=== PATIENT | male | born 1955 | race Caucasian/White ===

== ENCOUNTER 2019-06-10 20:12 | Inpatient (IN) ==
[2019-06-10] MEDS ORDERED: NS 1,000 ML IV ONE (20:52)
[2019-06-10] MEDS ORDERED: ATIVAN IV ONE (20:52)
[2019-06-10 21:11] LABS: BASO# 0.01 X1000 (0.0-0.2); BASO% 0.2 % (0.0-0.8); EOS# 0.01 X1000 (0.0-0.7); EOS% 0.2 % (0.0-10.0); HEMATOCRIT 31.1 % (42.0-52.0); HEMOGLOBIN 10.9 g/dL (14.0-18.0); IMM GRAN# 0.03 X1000 (0.0-0.04); IMM GRAN% 0.6 % (0.0-0.5); LYMPH# 0.49 X1000 (1.2-3.4); LYMPH% 9.7 % (20.5-51.1); MCH 26.8 PG (27-31); MCV 76.6 FL (81-99); MONO% 9.9 % (1.7-9.3); MPV 9.1 FL (7.4-10.4); NEUT% 79.4 % (42.2-75.2); PLT 133 X1000 (130-400); RBC 4.06 XMIL (4.7-6.1); RDW 18.8 % (11.5-14.5); WBC 5.04 X1000 (4.8-10.8)
[2019-06-10 21:37] LABS: ESTIMATED GFR > 60
[2019-06-10 21:51] LABS: ACETAMINOPHEN < 1.2 ug/mL (10-30); AGAP 15; ALB/GLOB RATIO 1.4; ALBUMIN 3.9 g/dL (3.5-5.0); ALKALINE PHOSPHATASE 97 U/L (32-122); AMYLASE 77 U/L (20-200); BUN 6 mg/dL (8-22); CALCIUM 7.7 mg/dL (8.8-10.2); CHLORIDE 88 mmol/L (98-107); COSMO 252; CREATININE 0.7 mg/dL (0.7-1.2); GLUCOSE 112 mg/dL (70-104); GOT 168 U/L (10-34); GPT 106 U/L (10-44); LIPASE 84 U/L (13-60); POTASSIUM 3.8 mmol/L (3.5-5.1); SALICYLATES < 3.00 mg/dL (3-10); SODIUM 126 mmol/L (136-145); TCO2 23 mmol/L (25-35); TOTAL BILIRUBIN 0.22 mg/dL (0.20-1.00); TOTAL PROTEIN 6.6 g/dL (6.3-8.3)
[2019-06-10 22:25] LABS: URINE SOURCE CLEAN CATCH
[2019-06-10 22:36] LABS: BILIRUBIN URINE NEGATIVE (NEGATIVE); BLOOD URINE NEGATIVE (NEGATIVE); COLOR YELLOW; GLUCOSE URINE NEGATIVE (NEGATIVE); KETONE URINE NEGATIVE (NEGATIVE); LEUKOCYTES URINE NEGATIVE (NEGATIVE); NITRITE URINE NEGATIVE (NEGATIVE); PROTEIN URINE 30 mg/dL (NEGATIVE); SP GRAVITY URINE 1.019; TURBIDITY URINE CLEAR (CLEAR); UR EPITHELIAL CELLS <10 /HPF (<10); URINE BACTERIA NEGATIVE /HPF; URINE RBC <10 /HPF (<10); URINE WBC <10 /HPF (<10); UROBILINOGEN URINE NORMAL (NORMAL)
[2019-06-10 22:48] LABS: UR AMPHETAMINES QUAL NONE DETECTED (NONE DETECT); UR BARBITUATES QUAL NONE DETECTED (NONE DETECT); UR BENZODIAZEPIN QUAL NONE DETECTED (NONE DETECT); UR CANNABINOIDS QUAL PRESUMPTIVE POSITIVE (NONE DETECT); UR COCAINE QUAL NONE DETECTED (NONE DETECT); UR METHADONE QUAL NONE DETECTED (NONE DETECT); UR OPIATES QUAL NONE DETECTED (NONE DETECT); UR OXYCODONE QUAL NONE DETECTED (NONE DETECT); UR PCP QUAL NONE DETECTED (NONE DETECT)
--- NOTE | 2019-06-10 22:59 | PROVIDER DOCUMENTATION ---
This chart was entered by Mara Hilario Scribe, acting as scribe for Felicita Kuo MD. [id number]-[id number]-[facility] Abuse/Overdose - General Chief Complaint: Alcohol Withdrawal Stated Complaint: ALCOHOL W/D(HERE EARLIER TODAY) Time Seen by Provider: 06/10/19 20:20 Source: patient Allergies/Adverse Reactions: Allergies Allergy/AdvReac Type Severity Reaction Status Date / Time No Known Allergies Allergy Verified 06/10/19 20:41 Home Medications: Home Medication List Medication Instructions Recorded Confirmed Last Taken Type NK [No Home Medications] 06/10/19 06/10/19 Unknown History - History of Present Illness-Drug/Alcohol Nature of Presenting Problem: 64yom presents to ED cc wanting help to to stop drinking and his overall goal is to finally get sober. Pt reports he decided to quit this morning and came to ED and was discharged and told to come back when he was having true withdrawal problems. Pt reports he has been drinking for 50yr and has had a previous inpatient detox about 6yrs ago. he has been lying in bed per GF fo r the past 5 days and drank a gallon and a half of vodka and 18 pack of beer last night. He states that his mother just . He denies any SI. 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 He was admitted about 6 years to inpatient rehab for alcohol but then started drinking again. He states he is serious about sobering up this time. Pt has hx of enlarged aorta and prostate cancer. This episode of drinking or use began:: gradual Severity: reports: severe Psychiatric Complaints: reports: agitated, anxiety, depressed. denies: homicidal thoughts, suicidal ideation Associated Symptoms: reports: anxiety, fatigue, fever/chills, muscle aches Any injuries associated with this episode of intoxication?: No Similar Symptoms Previously?: Yes Recently seen or treated by another doctor?: Yes (seen here this afternoon) - Substance Abuse Substance Use: reports: alcohol Review of Systems - Adult - REVIEW OF SYSTEMS - ADULT Constitutional: reports: see HPI, chills, fever, fatique, night sweats Eyes: reports: no symptoms reported Ears, Nose, Mouth & Throat: reports: no symptoms reported Cardiovascular: reports: no symptoms reported Respiratory: reports: no symptoms reported Gastrointestinal: reports: no symptoms reported Genitourinary: reports: no symptoms reported Musculoskeletal: reports: no symptoms reported Integumentary: reports: no symptoms reported Neurological: reports: no symptoms reported Psychiatric: reports: see HPI, anxiety, alcohol/drug dependence, depression. denies: suicidal thoughts Endocrine: reports: no symptoms reported Hematologic/Lymphatic: reports: no symptoms reported Allergic/Immunologic: reports: no symptoms reported All Other Systems: Reviewed and Negative Past History - Adult - PAST MEDICAL HISTORY-ADULT Review of Records: reports: Nursing Assessment Review, Medications Reviewed, Social history reviewed & non-contributory. Major Childhood Illnesses: reports: denies history Cardiovascular: reports: denies history Respiratory: reports: denies history Gastrointestinal: reports: denies history Obstetrical/Gynecological: reports: denies history Genitourinary: reports: denies history Musculoskeletal: reports: denies history Neurological: reports: denies history Endocrine/Immune: reports: denies history Other Conditions: reports: denies history - IMMUNIZATION STATUS Childhood Immunizations: See Nurse Assessment Flu Vaccine: See Nurse Assessment - FAMILY HISTORY Family History: reviewed, not pertinent - SOCIAL HISTORY Smoking: cigarettes, greater than 1 pack/day Substance Use: alcohol Alcohol Use Frequency: every day Number of drinks per typical drinking period:: >20 drinks Physical Exam-General - PHYSICAL EXAM-ADULT Initial Vital Signs Reviewed: Yes - CONSTITUTIONAL General Appearance: anxious. negative: combative - HEAD, EARS, NOSE, MOUTH & THROAT HENMT: normocephalic/atraumatic, moist mucous membranes. negative: angioedema, dental decay, hearing deficit - NECK Neck: non-tender, full range of motion, supple, normal inspection. negative: C- spine tenderness - RESPIRATORY Respiratory: chest non-tender, lungs clear, normal breath sounds, no pleuratic chest pain, no respiratory distress, no accessory muscle use. negative: crackles, rales, rhonchi, stridor, wheezing - CARDIOVASCULAR Cardiovascular: normal peripheral pulses, no edema, no gallop, no JVD, no murmur , tachycardia. negative: regular rate, rhythm, bradycardia - GASTROINTESTINAL (ABDOMEN) Abdominal Exam: normal bowel sounds, non tender, soft, no organomegaly, no pulsatile mass. negative: distended, guarding, rigid, rebound, tenderness, hernia, mass - MUSCULOSKELETAL Extremity: normal range of motion, non-tender, normal gait, normal inspection, no pedal edema, no calf tenderness, normal capillary refill, pelvis stable. negative: deformity, erythema, swelling, tenderness - SKIN Integumentary: normal color, normal turgor, diaphoresis. 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 negative: facial droop, focal weakness, motor weakness, sensory deficit - PSYCHIATRIC Psych/Mental Status: normal mood/affect, normal thought content, normal thought process, oriented x 3, anxious. negative: disoriented x 3, disheveled, depressed affect Progress - PLAN OF CARE/RESULTS Progress/Plan/Lab Results: Vital Signs - 8 hr 06/10/19 20:19 06/10/19 20:22 06/10/19 20:31 Temperature 99.1 F Pulse Rate 104 H 98 H Respiratory Rate 20 14 Blood Pressure 178/90 175/114 O2 Sat by Pulse Oximetry 97 98 06/10/19 20:33 06/10/19 21:03 06/10/19 21:06 Temperature Pulse Rate 101 H 92 H 85 Respiratory Rate 27 H 18 15 Blood Pressure 172/97 176/92 143/88 O2 Sat by Pulse Oximetry 97 98 97 06/10/19 21:17 06/10/19 21:32 06/10/19 21:48 Temperature Pulse Rate 77 84 80 Respiratory Rate 19 19 20 Blood Pressure 154/80 154/85 145/86 O2 Sat by Pulse Oximetry 94 L 94 L 95 06/10/19 22:02 06/10/19 22:19 06/10/19 22:33 Temperature Pulse Rate 93 H 84 87 Respiratory Rate 18 19 21 Blood Pressure 134/88 130/88 156/78 O2 Sat by Pulse Oximetry 96 97 06/10/19 22:47 06/10/19 23:02 06/10/19 23:04 Temperature 99.1 F Pulse Rate 81 76 85 Respiratory Rate 22 23 18 Blood Pressure 146/64 143/75 143/75 O2 Sat by Pulse Oximetry 97 95 06/10/19 23:18 Temperature Pulse Rate Respiratory Rate 18 Blood Pressure O2 Sat by Pulse Oximetry Laboratory Results - last 24 hr 06/10/19 06/10/19 06/10/19 20:53 20:53 20:53 WBC RBC Hgb Hct MCV MCH MCHC RDW Std Deviation Plt Count MPV Immature Gran % (Auto) Neut % (Auto) Lymph % (Auto) [place] % (Auto) Eos % (Auto) Baso % (Auto) Immature Gran # (Auto) Neut # (Auto) Lymph # (Auto) [place] # (Auto) Eos # (Auto) Baso # (Auto) Sodium 126 L Potassium 3.8 Chloride 88 L Carbon Dioxide 23 L Anion Gap 15 BUN 6 L Creatinine 0.7 Estimated GFR/1.73 m2 > 60 BUN/Creatinine Ratio 9 Glucose 112 H Calculated Osmolality 252 Calcium 7.7 L Total Bilirubin 0.22 AST 168 H ALT 106 H Alkaline Phosphatase 97 Ammonia 23 Total Protein 6.6 Albumin 3.9 Globulin 2.7 Albumin/Globulin Ratio 1.4 Amylase 77 Lipase 84 H Urine Source Urine Color Urine Turbidity Urine pH Ur Specific [place] Urine Protein Ur Glucose (Stick) Ur Ketones (Stick) Urine Blood Urine Nitrite Urine Bilirubin Urobilinogen Dipstick Urine Leukocytes Urine WBC (Auto) Urine RBC (Auto) U Epithel Cells (Auto) Urine Bacteria (Auto) Salicylates < 3.00 L Urine Opiates Screen Ur Oxycodone Screen Ur Methadone, Qual Acetaminophen < 1.2 L Ur Barbiturates Screen Ur Phencyclidine Scrn Ur Amphetamines Screen U Benzodiazepines Scrn Urine Cocaine Screen U Cannabinoids Screen Plasma/Serum Ethyl Alc 77 H 06/10/19 06/10/19 06/10/19 20:53 22:19 22:19 WBC 5.04 RBC 4.06 L Hgb 10.9 L D Hct 31.1 L MCV 76.6 L MCH 26.8 L MCHC 35.0 RDW Std Deviation 18.8 H Plt Count 133 MPV 9.1 Immature Gran % (Auto) 0.6 H Neut % (Auto) 79.4 H Lymph % (Auto) 9.7 L [place] % (Auto) 9.9 H Eos % (Auto) 0.2 Baso % (Auto) 0.2 Immature Gran # (Auto) 0.03 Neut # (Auto) 4.00 Lymph # (Auto) 0.49 L [place] # (Auto) 0.50 Eos # (Auto) 0.01 Baso # (Auto) 0.01 Sodium Potassium Chloride Carbon Dioxide Anion Gap BUN Creatinine Estimated GFR/1.73 m2 BUN/Creatinine Ratio Glucose Calculated Osmolality Calcium Total Bilirubin AST ALT Alkaline Phosphatase Ammonia Total Protein Albumin Globulin Albumin/Globulin Ratio Amylase Lipase Urine Source CLEAN CATCH Urine Color YELLOW Urine Turbidity CLEAR Urine pH 6.0 Ur Specific [place] 1.019 Urine Protein 30 A Ur Glucose (Stick) NEGATIVE Ur Ketones (Stick) NEGATIVE Urine Blood NEGATIVE Urine Nitrite NEGATIVE Urine Bilirubin NEGATIVE Urobilinogen Dipstick NORMAL Urine Leukocytes NEGATIVE Urine WBC (Auto) <10 Urine RBC (Auto) <10 U Epithel Cells (Auto) <10 Urine Bacteria (Auto) NEGATIVE Salicylates Urine Opiates Screen NONE DETECTED Ur Oxycodone Screen NONE DETECTED Ur Methadone, Qual NONE DETECTED Acetaminophen Ur Barbiturates Screen NONE DETECTED Ur Phencyclidine Scrn NONE DETECTED Ur Amphetamines Screen NONE DETECTED U Benzodiazepines Scrn NONE DETECTED Urine Cocaine Screen NONE DETECTED U Cannabinoids Screen PRESUMPTIVE POSITIVE A Plasma/Serum Ethyl Alc Orders Category Date Time Status Neurological Check q2h Care 06/10/19 23:18 Active Sedation/Agitation Scale Q2H Care 06/10/19 23:18 Active Vital Signs Order Q2H Care 06/10/19 23:18 Active ACETAMINOPHEN [TDM] Stat Lab 06/10/19 20:53 Completed ALCOHOL BLOOD Stat Lab 06/10/19 20:53 Completed AMMONIA [CHEM] Stat Lab 06/10/19 20:53 Completed AMYLASE [CHEM] Stat Lab 06/10/19 20:53 Completed CBC WITH ELECTRONIC DIFF [HEME] Stat Lab 06/10/19 20:53 Completed COMPREHENSIVE METABOLIC PANEL [CHEM] Stat Lab 06/10/19 20:53 Completed LIPASE [CHEM] Stat Lab 06/10/19 20:53 Completed SALICYLATES [TDM] Stat Lab 06/10/19 20:53 Completed URINALYSIS W/POSS RFLX CULT [URINALYSIS] Stat Lab 06/10/19 22:19 Completed URINE DRUG SCREEN Stat Lab 06/10/19 22:19 Completed 0.9% Sodium Chloride Inj [Ns] 1,000 ml Med 06/10/19 20:52 Discontinued IV 999 mls/hr Lorazepam [Ativan] Med 06/10/19 20:52 Discontinued 1 mg IV NOW ONE Lorazepam [Ativan] Med 06/11/19 00:04 Active 2 mg IV PRN PRN Lorazepam [Ativan] Med 06/10/19 23:18 Discontinued 2 mg IV Q2H PRN PRN Multivit,Fe,Ca,FA & Min [Thera M Plus] Med 06/11/19 09:00 Active 1 each PO DAILY Mvi [M.v.i.-12] 10 ml Med 06/10/19 23:18 Active Folic Acid 1 mg Magnesium Sulfate 1 gm Thiamine 100 mg 0.9% Sodium Chloride Inj [Ns] 1,000 ml IV NOW Olanzapine Rapdis [Zyprexa Zydis] Med 06/10/19 23:18 Active 10 mg SL PRN PRN Pulse Oximetry Routine Oth 06/10/19 23:18 Active Transfer/Admit Order [TRANSFER] Routine Transfer 06/11/19 00:13 Ordered Result Diagrams: 06/10/19 20:53 06/10/19 20:53 - CONSULTS/PCP/HOSPITALIST Notification #1 *Consult/PCP/Hospitalist*: Dr. Cali Prather Discussed: 22:55 (Will evaluate in the ED prior to accepting patient for admission) Consult Disposition: Will see in ED #2 Consult: Dr Cali Prather Discussed: 00:03 (Start pt on ativan drip) Consult Disposition: Admit Departure - Departure Date of Disposition Decision: 06/11/19 Time of Disposition Decision: 00:03 DIAGNOSIS: Alcohol withdrawal, Hyponatremia, Dehydration, Transaminitis, Cannabis abuse Alcohol dependence Qualifiers: Substance use status: in withdrawal Disposition: ADMITTED INPATIENT 09 Certified Medical Emergency: Emergent Condition: Serious - Critical Care Note This patient required my direct & personal management of CC.: Yes Total Time (mins): 75 Critical Care Statement: This patient required my direct personal management to treat or rule out processes, the absence of which, could potentiallly result in sudden, clinically significant life or limb threatening deterioration. Attestation - Physician/ TATYANA Attestation Patient care was provided by Advanced Practice Provider:: No The physician spent face to face time with patient:: Yes (t) Advanced Practice Provider documentation review:: Supervising physician onsite and consulted in the evaluation and care of this patient. The physician did have a face to face encounter with the patient. This chart was documented by the indicated scribe, (Mara Hilario Scribe) and accurately reflects the services I performed and decisions made by me, Felicita Kuo MD, as attested by the provider's signature.
[2019-06-10] MEDS ORDERED: ATIVAN IV PRN (23:18)
[2019-06-10] MEDS ORDERED: ZYPREXA ZYDIS SL PRN (23:18)
[2019-06-10] MEDS ORDERED: M.V.I.-12 10 ML, FOLIC ACID 1 MG, MAGNESIUM SULFATE 1 GM, THIAMINE 100 MG in NS 1,000 ML IV ONE (23:18)
[2019-06-11] MEDS ORDERED: ATIVAN IV PRN ×2 (00:04→02:41)
[2019-06-11] MEDS ORDERED: ATIVAN 20 MG in NS 190 ML IV SCH (00:15)
[2019-06-11] MEDS ORDERED: ZOFRAN IV PRN (01:31)
[2019-06-11] MEDS ORDERED: TYLENOL PO ONE (02:45)
--- NOTE | 2019-06-11 03:04 | HISTORY AND PHYSICAL ---
PRIMARY CARE PHYSICIAN: None, visiting from [place]. CHIEF COMPLAINT: Alcohol withdrawal. HISTORY OF PRESENTING ILLNESS: A 64-year-old male with a history of chronic alcoholism apparently had been on a binge for the past 2 weeks. As per his family member, he was drinking over a gallon of vodka and 7 cases of beer. He stayed in the bed all this time and recently he started having symptoms and he wanted to try to quit. He stopped drinking earlier today and started developing severe tremors and had presented to the emergency department. In the ED, he seemed as if he were going through severe withdrawals and subsequently it was thought that he would need to be admitted to ICU and started on an Ativan drip per withdrawal protocol. At the time of my examination, he was tremulous and diaphoretic. However, he was able to deny any headache, chest pain, hemoptysis, melena or any weight changes. PAST MEDICAL HISTORY: None. PAST SURGICAL HISTORY: Left rotator cuff surgery, prostate surgery. ALLERGIES: No known drug allergies. CURRENT MEDICATIONS: He does not recall and nursing staff will reconcile. SOCIAL HISTORY: No history of smoking. Admits to chronic alcohol use. Denies any illicit drug use. FAMILY HISTORY: No history of coronary artery disease. REVIEW OF SYSTEMS: Fourteen point review of systems as listed in HPI. Other systems negative. PHYSICAL EXAMINATION: GENERAL: The patient is moderately agitated and tremulous and somewhat diaphoretic. VITAL SIGNS: Temperature 99.1 degrees, pulse 104, respiration 20, blood pressure 178/90. HEENT: Atraumatic, normocephalic. NECK: No masses. CHEST: Rhonchi. CARDIOVASCULAR: Tachycardic. ABDOMEN: Soft. Positive bowel sounds. EXTREMITIES: No edema. NEUROLOGIC: He is somewhat tremulous and agitated. GENITOURINARY: No bladder distention. SKIN: Warm. LABORATORIES AND STUDIES: WBCs 5.04, hemoglobin 10.9, hematocrit 31.1, platelets 133,000. Sodium 126, chloride 88, CO2 is 23, BUN is 6, creatinine 0.7, glucose is 112. ASSESSMENT: This is a 64-year-old male with a history of chronic alcoholism who apparently was on a binge for the last 2 weeks. He stayed in bed drinking over a gallon of vodka and 7 cases of beer or more. His family brought him to the emergency department. He stated he wanted to quit drinking. His last drink was earlier today. He was having moderate amount of tremors and was diaphoretic. Due to his presenting symptoms, he will be admitted to ICU for further management. Severe alcohol withdrawal. PLAN: 1. We will admit patient to ICU. 2. We will put patient on an Ativan drip per alcohol withdrawal protocol. 3. Continue with a banana bag. 4. We will consult Social Service for assistance with further placement for patient once his symptoms subside. 5. Put patient on DVT prophylaxis with SCDs. 6. We will continue to follow, and reassess and make further recommendation based on patient's clinical course. cc: Stevie Leiva MD MTDD
[2019-06-11 05:21] LABS: PROTIME 13.3 Seconds (11.0-16.0)
[2019-06-11 05:22] LABS: PTT 25.7 Seconds (22.3-41.8)
[2019-06-11] MEDS ORDERED: MAGNESIUM SULFATE 2 GM/S.W.I. 2 GM/50 ML IVPB IV ONE (08:04)
[2019-06-11] MEDS: NS 1,000 ML IV SCH ×2 (08:44→16:09)
[2019-06-11 08:55] LABS: BASO# 0.01 X1000 (0.0-0.2); BASO% 0.2 % (0.0-0.8); EOS# 0.07 X1000 (0.0-0.7); EOS% 1.1 % (0.0-10.0); HEMOGLOBIN 12.1 g/dL (14.0-18.0); LYMPH% 7.6 % (20.5-51.1); MCHC 34.6 g/dL (33-37); MCV 78.1 FL (81-99); MONO# 0.62 X1000 (0.11-0.59); MONO% 9.4 % (1.7-9.3); MPV 9.4 FL (7.4-10.4); NEUT# 5.41 X1000 (1.4-6.5); NEUT% 81.7 % (42.2-75.2); PLT 109 X1000 (130-400); RBC 4.48 XMIL (4.7-6.1); RDW 19.7 % (11.5-14.5); WBC 6.61 X1000 (4.8-10.8)
[2019-06-11] MEDS ORDERED: THERA M PLUS PO SCH (09:00)
[2019-06-11 09:11] LABS: AGAP 9; ALB/GLOB RATIO 1.5; ALBUMIN 3.7 g/dL (3.5-5.0); ALKALINE PHOSPHATASE 100 U/L (32-122); BUN 6 mg/dL (8-22); CALCIUM 8.2 mg/dL (8.8-10.2); CHLORIDE 100 mmol/L (98-107); COSMO 271; CREATININE 0.6 mg/dL (0.7-1.2); ESTIMATED GFR > 60; GLUCOSE 83 mg/dL (70-104); GOT 139 U/L (10-34); GPT 100 U/L (10-44); POTASSIUM 3.9 mmol/L (3.5-5.1); SODIUM 137 mmol/L (136-145); TCO2 28 mmol/L (25-35); TOTAL BILIRUBIN 0.55 mg/dL (0.20-1.00); TOTAL PROTEIN 6.1 g/dL (6.3-8.3)
[2019-06-11] MEDS: ATIVAN 20 MG in NS 190 ML IV SCH ×2 (09:21→18:11)
[2019-06-11] MEDS: M.V.I.-12 10 ML, FOLIC ACID 1 MG, MAGNESIUM SULFATE 1 GM, THIAMINE 100 MG in NS 1,000 ML IV SCH (09:21)
[2019-06-12] MEDS: NS 1,000 ML IV SCH ×3 (00:28→16:28)
[2019-06-12 06:33] LABS: PHOSPHORUS 3.3 mg/dL (2.7-4.5)
[2019-06-12 06:34] LABS: BASO# 0.01 X1000 (0.0-0.2); BASO% 0.2 % (0.0-0.8); EOS# 0.13 X1000 (0.0-0.7); HEMATOCRIT 35.8 % (42.0-52.0); HEMOGLOBIN 12.4 g/dL (14.0-18.0); LYMPH# 0.55 X1000 (1.2-3.4); LYMPH% 12.8 % (20.5-51.1); MCH 27.4 PG (27-31); MCHC 34.6 g/dL (33-37); MCV 79.2 FL (81-99); MONO# 0.41 X1000 (0.11-0.59); MONO% 9.5 % (1.7-9.3); NEUT% 74.5 % (42.2-75.2); PLT 131 X1000 (130-400); RBC 4.52 XMIL (4.7-6.1); RDW 19.9 % (11.5-14.5)
[2019-06-12 06:37] LABS: AGAP 10; BUN 8 mg/dL (8-22); CALCIUM 8.5 mg/dL (8.8-10.2); CHLORIDE 104 mmol/L (98-107); COSMO 275; CREATININE 0.6 mg/dL (0.7-1.2); ESTIMATED GFR > 60; GLUCOSE 90 mg/dL (70-104); IRON SATURATION 17 %; POTASSIUM 3.7 mmol/L (3.5-5.1); SODIUM 139 mmol/L (136-145); TCO2 25 mmol/L (25-35); TIBC 314 ug/dL; TOTAL IRON 53 ug/dL (53-167); UNBOUND IRON 261 ug/dL (112-346)
[2019-06-12 06:56] LABS: FERRITIN 115 ng/mL (30-400)
[2019-06-12] MEDS ORDERED: NORVASC PO ONE (08:24)
--- NOTE | 2019-06-12 08:54 | PROGRESS NOTE ---
DATE: 06/12/2019 SUBJECTIVE: This patient is completely awake. He is oriented. He seems to have generalized weakness. No tremors. He is tolerating p.o. He is still only on iron protocol that hopefully will be stopped today. OBJECTIVE: Vital Signs: Temperature 98.3 degrees, pulse 67, respiratory rate 14, blood pressure 171/99, and Oxygen saturation 99 percent on room air. HEENT: Head normocephalic. No trauma. PERRLA. Neck: Supple. No JVD. No masses. Central trachea. Chest: Clear to auscultation. No wheezing. No rales. Abdomen: Soft and likely protuberant. Nontender. Nondistended. No hepatosplenomegaly. Extremities: No edema. No clubbing. No cyanosis. Neurological: The patient is alert. He is oriented x3. No focal deficits. LABORATORY: WBC 4.3, hemoglobin 12.4, hematocrit 35.8, and platelets 131,000. Sodium 139, potassium 3.7, chloride 104, bicarbonate 25, BUN 8, creatinine 0.6 glucose 90, and calcium 8.5. ASSESSMENT AND PLAN: 1. Severe alcohol withdrawal. Continue with the Ativan protocol. IV fluids. The patient seems to be doing well. We will continue with same treatment. He is awake, alert, and oriented x3. He is following commands and eating by himself. 2. Hyponatremia resolved. 3. Hypertension. I am not sure if this patient has a history of high blood pressure. I do not see any kind of medication listed on his medications. I will give him a 1 time dose of amlodipine, and I will monitor. 4. Microcytic anemia probably due to iron deficiency anemia. I will replace it. 5. Metabolic encephalopathy, likely due to alcohol withdrawal, resolved. 6. Overall, this patient is doing much better. I will continue monitoring this patient in the ICU because he is on an Ativan drip still, which hopefully we will stop today. I believe this patient can be discharged in the next 24 to 48 hours. He is going back to [place], and he is going to live with a girlfriend. cc: Mason Steve MD
[2019-06-12] MEDS: FERROUS SULFATE PO SCH (09:03)
[2019-06-12] MEDS: M.V.I.-12 10 ML, FOLIC ACID 1 MG, MAGNESIUM SULFATE 1 GM, THIAMINE 100 MG in NS 1,000 ML IV SCH (10:09)
[2019-06-12] MEDS: LIBRIUM PO SCH ×2 (14:57→20:24)
[2019-06-13] MEDS: NS 1,000 ML IV SCH ×2 (00:25→08:36)
[2019-06-13 06:04] LABS: EOS# 0.15 X1000 (0.0-0.7); EOS% 2.8 % (0.0-10.0); HEMATOCRIT 38.7 % (42.0-52.0); HEMOGLOBIN 13.5 g/dL (14.0-18.0); LYMPH# 0.54 X1000 (1.2-3.4); LYMPH% 10.2 % (20.5-51.1); MCH 27.4 PG (27-31); MCHC 34.9 g/dL (33-37); MCV 78.7 FL (81-99); MONO# 0.61 X1000 (0.11-0.59); MONO% 11.5 % (1.7-9.3); MPV 9.6 FL (7.4-10.4); NEUT# 4.01 X1000 (1.4-6.5); NEUT% 75.5 % (42.2-75.2); PLT 146 X1000 (130-400); RBC 4.92 XMIL (4.7-6.1); RDW 19.5 % (11.5-14.5); WBC 5.31 X1000 (4.8-10.8)
[2019-06-13 07:09] LABS: AGAP 11; ALB/GLOB RATIO 1.2; ALBUMIN 3.7 g/dL (3.5-5.0); ALKALINE PHOSPHATASE 111 U/L (32-122); BUN 7 mg/dL (8-22); CALCIUM 8.9 mg/dL (8.8-10.2); CHLORIDE 100 mmol/L (98-107); COSMO 266; CREATININE 0.7 mg/dL (0.7-1.2); ESTIMATED GFR > 60; GLUCOSE 103 mg/dL (70-104); GOT 180 U/L (10-34); GPT 132 U/L (10-44); POTASSIUM 3.4 mmol/L (3.5-5.1); SODIUM 134 mmol/L (136-145); TCO2 23 mmol/L (25-35); TOTAL BILIRUBIN 0.34 mg/dL (0.20-1.00); TOTAL PROTEIN 6.8 g/dL (6.3-8.3)
[2019-06-13] MEDS: LIBRIUM PO SCH (08:35)
[2019-06-13] MEDS: FERROUS SULFATE PO SCH (08:36)
[2019-06-13 10:07] VITALS: BP 158/93
[2019-06-13] MEDS: M.V.I.-12 10 ML, FOLIC ACID 1 MG, MAGNESIUM SULFATE 1 GM, THIAMINE 100 MG in NS 1,000 ML IV SCH (10:35)
--- NOTE | 2019-06-13 10:57 | DISCHARGE SUMMARY ---
ADMISSION DATE: 06/11/2019 DISCHARGE DATE: 06/13/2019 HISTORY AND HOSPITAL COURSE: Came in with alcohol withdrawal. A 54-year-old with history of chronic alcoholism has apparently been on a binge for over 2 weeks. His family member says he was drinking a gallon of vodka and seven cases of beer. States that he is in the bed all the time. He started having symptoms and wanted to quit. Stopped drinking earlier in the day, started developing severe tremors, and presented to the emergency room. In the emergency room, he seemed to be going through severe withdrawals. Subsequently thought he would need to be admitted to ICU. Started on Ativan drip per protocol. He was very tremulous and diaphoretic. The patient seemed to improve, followed the Ativan protocol, and was asking to go home. He had a microcytic anemia, consistent with iron-deficiency anemia, and so he was put on some iron, and he had metabolic encephalopathy, likely due to alcohol withdrawal symptoms. This resolved, and he was requesting to go home on 06/13/2019. PAST MEDICAL/SURGICAL HISTORY: Left rotator cuff surgery, prostate surgery. ALLERGIES: No known drug allergies. DISCHARGE MEDICATIONS: Ferrous sulfate 325 mg a day. Otherwise, no other medications. FOLLOWUP: He is encouraged to find a primary care physician to follow up. LABORATORY DATA: His last lab showed white count 5310, hematocrit 38, hemoglobin 13, platelet count 146,000. Sodium 134, potassium 3.4, chloride 100, BUN 7, creatinine 0.7. Magnesium is 2.0. Transaminases showed his AST was 180, ALT 132, total bilirubin 0.34. cc: Leonel Lay MD
== END 2019-06-13 11:23 | disposition home or self-care (01) | DRG 897 ==
LOC: ED 20:12 → SUATTDRO 06-11 00:21 → EDIPHOLD 06-11 00:21 → ICU 06-11 01:04
PROVIDERS: ATTEND Emergency Medicine